=== PATIENT | female | born 2000 | race Caucasian/White ===

== ENCOUNTER 2018-11-17 14:04 | Emergency (ER) | payer OTHER ==
[~2018-11-17] VITALS: Ht 160 cm; Wt 59.0 kg
[2018-11-17 14:35] VITALS: BP 116/68
--- NOTE | 2018-11-17 14:50 | NUR ---
PT AMBULATES TO BED 8
--- NOTE | 2018-11-17 15:03 | NUR ---
C/O NAUSEA, VOMITING X 2 DAYS, DIARRHEA TODAY AND NON RADIATING LOWER BACK PAIN 07/22. VSS; PATIENT POSITIONED FOR COMFORT; HOB ELEVATED; BEDRAILS UP X1; BED DOWN. ER MD MADE AWARE OF PT STATUS.
--- NOTE | 2018-11-17 15:34 | NUR ---
Patient being evaluated by physician at bedside.
[2018-11-17] MEDS ORDERED: NACL 0.9% 1,000 ML IV ONE (15:50)
[2018-11-17] MEDS ORDERED: KETOROLAC 30 MG/ML VIAL IVP ONE (15:50)
[2018-11-17] MEDS ORDERED: ONDANSETRON 4 MG/2 ML VIAL IVP ONE (15:50)
--- NOTE | 2018-11-17 16:08 | NUR ---
PT TAKEN TO XRAY VIA WHEELCHAIR
[2018-11-17 16:11] LABS: BASOPHILS # (AUTO) 0.1 K/uL (0.00-0.22); BASOPHILS % (AUTO) 0.5 % (0.0-2.0); EOSINOPHILS % (AUTO) 0.2 % (0.0-4.0); HEMATOCRIT 38.4 % (36-48); HEMOGLOBIN 12.6 g/dL (12.0-16.0); LYMPHOCYTES # (AUTO) 2.1 K/uL (2.5-16.5); LYMPHOCYTES % (AUTO) 19.4 % (20.5-51.1); MEAN CORPUSCULAR HEMOGLOBIN 29 pg (27-31); MEAN CORPUSCULAR HGB CONC 33 g/dL (33-37); MEAN CORPUSCULAR VOLUME 88.1 fL (80-94); MONOCYTES # (AUTO) 0.8 K/uL (0.8-1.0); MONOCYTES % (AUTO) 7.8 % (1.7-9.3); NEUTROPHILS # (AUTO) 7.8 K/uL (1.8-7.7); NEUTROPHILS % (AUTO) 72.1 % (42.2-75.2); PLATELET COUNT (AUTO) 272 K/uL (140-450); RED BLOOD CELL COUNT(AUTO) 4.36 MIL/uL (4.20-5.40); RED CELL DISTRIBUTION WIDTH 13.7 % (11.6-13.7); WHITE BLOOD COUNT (AUTO) 10.9 K/uL (4.5-11.0)
[2018-11-17 16:23] LABS: ANION GAP 11.5 (8-16); CARBON DIOXIDE 29.6 mmol/L (21-32); CREATININE 0.7 mg/dL (0.6-1.3); POTASSIUM 4.1 mmol/L (3.5-5.1)
--- NOTE | 2018-11-17 16:25 | NUR ---
PT RETURNED FROM XRAY
[2018-11-17 16:26] LABS: ALBUMIN 4.1 g/dL (3.4-5.0); TOTAL BILIRUBIN 1.1 mg/dL (0.0-1.0)
[2018-11-17 17:13] VITALS: BP 116/68
--- NOTE | 2018-11-17 17:14 | NUR ---
Patient discharged with v/s stable. Written and verbal after care instructions given and explained. Patient alert, oriented and verbalized understanding of instructions. Ambulatory with steady gait. All questions addressed prior to discharge. ID band removed. Patient advised to follow up with PMD. Rx of motrin and zofran given. Patient educated on indication of medication including possible reaction and side effects. Opportunity to ask questions provided and answered.
== END 2018-11-17 17:14 | disposition home or self-care (01) ==
LOC: MED 14:04
DX: M54.5 Low back pain (principal); R11.10 Vomiting, unspecified; R19.7 Diarrhea, unspecified; Z88.5 Allergy status to narcotic agent; Z91.040 Latex allergy status
CPT/HCPCS: 36415; 72100; 80053; 81002; 81025; 83690; 85025; 96361; 96374; 96375; 99284; J1885; J2405; J7030

== ENCOUNTER 2018-11-22 12:22 | Emergency (ER) | payer OTHER ==
[~2018-11-22] VITALS: Ht 167.6 cm; Wt 69.0 kg
[2018-11-22 12:42] VITALS: BP 106/66
[2018-11-22] MEDS ORDERED: LIDOCAINE MPF 1% - 5 mL VIAL 10 ML ONE (14:35)
[2018-11-22 15:01] VITALS: BP 116/57
== END 2018-11-22 15:00 | disposition home or self-care (01) ==
LOC: MED 12:22
DX: L02.31 Cutaneous abscess of buttock (principal); Z91.040 Latex allergy status; Z88.5 Allergy status to narcotic agent
CPT/HCPCS: 10060; 99283; J2001